=== PATIENT | male | born 1990 ===

== ENCOUNTER 2016-07-29 11:38 | Emergency (ER) | payer OTHER ==
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
[2016-07-29 13:08] VITALS: BP 114/70; PULSE 77; RESP 16; TEMP 98
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
[2016-07-29 17:35] VITALS: O2SAT 100
== END 2016-07-29 13:08 | disposition home or self-care (01) ==
LOC: C.ER 11:38
DX: S33.5XXA Sprain of ligaments of lumbar spine, initial encounter (principal); S16.1XXA Strain of muscle, fascia and tendon at neck level, initial encounter; V43.52XA Car driver injured in collision with other type car in traffic accident, initial encounter; Y92.414 Local residential or business street as the place of occurrence of the external cause

== ENCOUNTER 2016-09-17 19:04 | Emergency (ER) | payer SELFPAY ==
[2016-09-17 19:42] VITALS: TEMP 98.2
[2016-09-17] MEDS ORDERED: Amoxicillin-Clav 500-125 mg Tab PO STA (20:07)
[2016-09-17] MEDS ORDERED: Amoxicillin-Clav 500-125 mg Tab PO ONE (20:22)
--- NOTE | 2016-09-17 20:23 | C.PDOC ---
History Of Present Illness 25 year old patient presents to the ED complaining of left ear ache for 2 days. Patient states he has associated nasal congestion and cough. Patient denies any fever, trauma, headache or dizziness. Time Seen by Provider: 09/17/16 19:39 Chief Complaint (Nursing): ENT Problem History Per: Patient History/Exam Limitations: None Onset/Duration Of Symptoms: Days (2) Current Symptoms Are (Timing): Still Present Quality (Ear): Pain W/Touch Symptoms Have Been: Continuous Severity: Mild Pain Scale Rating Of: 3 Past Medical History Reviewed: Historical Data, Nursing Documentation, Vital Signs Vital Signs: Last Vital Signs Temp 98.2 F 09/17/16 19:40 Pulse 70 09/17/16 20:41 Resp 16 09/17/16 20:41 BP 106/68 09/17/16 20:41 Pulse Ox 100 09/17/16 21:58 Family History: States: Unknown Family Hx - Social History Hx Alcohol Use: No Hx Substance Use: No - Immunization History Hx Tetanus Toxoid Vaccination: No Hx Influenza Vaccination: No Hx Pneumococcal Vaccination: No Review Of Systems Except As Marked, All Systems Reviewed And Found Negative. Constitutional: Negative for: Fever ENT: Positive for: Ear Pain (left), Nose Congestion Respiratory: Positive for: Cough Neurological: Negative for: Headache, Dizziness Physical Exam - Physical Exam Appears: Non-toxic, No Acute Distress Skin: Warm, Dry Head: Atraumatic, Normacephalic Eye(s): bilateral: Normal Inspection, PERRL, EOMI Ear(s): Left: Other (mild erythema to TM; swelling to external canal; tenderness to left tragus), Right: Normal Nose: Normal Oral Mucosa: Moist Throat: Normal, No Erythema, No Exudate Neck: Normal ROM, Supple Lymphatic: No Adenopathy Chest: Symmetrical Cardiovascular: Rhythm Regular Respiratory: Normal Breath Sounds, No Rales, No Rhonchi, No Wheezing Neurological/Psych: Oriented x3, Normal Speech Gait: Steady ED Course And Treatment O2 Sat by Pulse Oximetry: 100 (room air) Pulse Ox Interpretation: Normal Medical Decision Making Medical Decision Making: Plan: * Motrin * Augmentin Disposition - Disposition Referrals: [facility] at [facility] [Outside] Disposition: HOME/ ROUTINE Disposition Time: 20:22 Condition: GOOD Additional Instructions: Follow up with the medical doctor within 1-2 days. Return if worsened. 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 - Scribe Statement The provider has reviewed the documentation as recorded by the Scribe Hemalatha Bernal All medical record entries made by the Scribodin were at my direction and personally dictated by me. I have reviewed the chart and agree that the record accurately reflects my personal performance of the history, physical exam, medical decision making, and the department course for this patient. I have also personally directed, reviewed, and agree with the discharge instructions and disposition.
[2016-09-17 20:42] VITALS: BP 106/68; PULSE 70; RESP 16
[2016-09-17 21:45] VITALS: O2SAT 100
== END 2016-09-17 20:42 | disposition home or self-care (01) ==
LOC: C.ER 19:04
DX: H60.92 Unspecified otitis externa, left ear (principal)